=== PATIENT | male | born 1965 | race Caucasian/White ===

== ENCOUNTER 2018-03-19 19:04 | Emergency (ER) | payer SELFPAY ==
[2018-03-19 19:19] VITALS: BP 147/79
--- NOTE | 2018-03-19 20:26 | ED ---
Laceration/Wound HPI - HPI Summary HPI Summary: 52-year-old male presents with laceration to his chest. He states that he was a maul and a piece of it broke off and struck him in the chest. He is unsure if there is a foreign body in the wound. He states the area bled a lot but is not currently bleeding. He denies any chest pain currently. He believes his immunizations are up-to-date. - History of Current Complaint Stated Complaint: CHEST LAC Time Seen by Provider: 03/19/18 20:15 Pain Intensity: 0 - Allergy/Home Medications Allergies/Adverse Reactions: Allergies Allergy/AdvReac Type Severity Reaction Status Date / Time Adhesive Tape Allergy Intermediate Itching Verified 03/19/18 19:19 Home Medications: Home Medications NK [No Home Medications Reported] 03/19/18 [History Confirmed 03/19/18] PMH/Surg Hx/FS Hx/Imm Hx Endocrine/Hematology History: Denies: Hx Anticoagulant Therapy Cardiovascular History: Denies: Hx Myocardial Infarction Infectious Disease History: No Infectious Disease History: Denies: Traveled Outside the [place] in Last 30 Days - Family History Known Family History: Positive: Hypertension - Social History Substance Use Type: Reports: None Review of Systems Negative: Fever Negative: Chest Pain Negative: Shortness Of Breath Positive: Other - chest wall laceration All Other Systems Reviewed And Are Negative: Yes Physical Exam Triage Information Reviewed: Yes Vital Signs On Initial Exam: Initial Vitals Temp Pulse Resp BP Pulse Ox 98.0 F 76 18 147/79 98 03/19/18 19:15 03/19/18 19:15 03/19/18 19:15 03/19/18 19:15 03/19/18 19:15 Vital Signs Reviewed: Yes Appearance: Positive: Well-Appearing Skin: Positive: Other - 1/2cm superficial laceration with no foreign body on center sternum Head/Face: Positive: Normal Head/Face Inspection Eyes: Positive: Normal, Conjunctiva Clear Respiratory/Lung Sounds: Positive: Clear to Auscultation, Breath Sounds Present Cardiovascular: Positive: Normal, RRR Musculoskeletal: Positive: Normal Neurological: Positive: Normal Psychiatric: Positive: Normal Procedures - Laceration/Wound Repair 1 Location: Other - chest wall Description: Linear Length, Depth and Shape: 1/2cm superficial Irrigated w/ Saline (ccs): 50 Laceration/Wound Explored: no foreign body removed Closure: Skin Adhesive Diagnostics - Vital Signs Vital Signs Temp Pulse Resp BP Pulse Ox 03/19/18 19:15 98.0 F 76 18 147/79 98 - Laboratory Lab Statement: Any lab studies that have been ordered have been reviewed, and results considered in the medical decision making process. Laceration Repair Course/Dx - Course Course Of Treatment: 52-year-old male presents with laceration to his chest. He states that he was a maul and a piece of it broke off and struck him in the chest. He is unsure if there is a foreign body in the wound. He states the area bled a lot but is not currently bleeding. He denies any chest pain currently. He believes his immunizations are up-to-date. On exam has a half centimeter superficial laceration to the chest wall over the sternum. explored Wound and no foreign body found. also tried with magnet and no foreign body found. Cleaned the area and glued. Patient understands agrees with plan. - Differential Dx Differental Diagnoses: Abrasion, Avulsion, Laceration - Clinical Impression Provider Diagnoses: Laceration of chest wall Discharge - Sign-Out/Discharge Documenting (check all that apply): Discharge/Admit/Transfer - Discharge Plan Condition: Good Disposition: HOME Patient Education Materials: Skin Adhesive Care (ED) Referrals: [facility] [place] [facility] [Outside] Additional Instructions: Place ice on area Take Tylenol for pain as needed every 6 hours Keep dry for 24 hours Glue will fall off on own Avoid scrubbing area Return to ED if develop any signs of infection or any new or worsening symptoms - Billing Disposition and Condition Condition: GOOD Disposition: HOME
== END 2018-03-19 20:47 | disposition home or self-care (01) ==
LOC: ED 19:04
DX: S21.119A Laceration without foreign body of unspecified front wall of thorax without penetration into thoracic cavity, initial encounter (principal); W22.8XXA Striking against or struck by other objects, initial encounter; Y93.9 Activity, unspecified; Y92.9 Unspecified place or not applicable
CPT/HCPCS: 12001; 99282

== ENCOUNTER 2018-06-03 15:40 | Emergency (ER) | payer OTHER ==
[2018-06-03 16:09] VITALS: BP 183/92
--- NOTE | 2018-06-03 16:22 | UC ---
Bite Injury/Animal HPI - HPI Summary HPI Summary: This is [facility] documenting for presenting Jimbo Pascal MD. Pt is a 52 y/o M c/o finger pain and infection presenting s/p spider bite, ~1 week ago, which he believes to have been a Brown Recluse spider. Pain is rated a 7/10 and is worsened by palpation, moving finger. Assoc. Sx: Redness, swelling , drainage - white (puss). He reports treating with antibiotic ointment. - History of Current Complaint Chief Complaint: UCSkin Stated Complaint: BUG BITE ON FINGER Time Seen by Provider: 06/03/18 16:16 Hx Obtained From: Patient Severity Initially: Severe Pain Intensity: 7 Pain Scale Used: 0-10 Numeric Onset/Duration: Sudden Onset Type of Bite: Wild Animal - spider Has Animal Been Immunized?: No Character: Puncture Aggravating Factor(s): Other - palpation, moving it. Alleviating Factor(s): Nothing Associated Signs And Symptoms: Positive: Erythema, Drainage - white puss, Swelling - Allergies/Home Medications Allergies/Adverse Reactions: Allergies Allergy/AdvReac Type Severity Reaction Status Date / Time Adhesive Tape Allergy Intermediate Itching Verified 06/03/18 16:09 Home Medications: Home Medications Buprenorphine HCl/Naloxone HCl [Suboxone 4 mg-1 mg Sl Film] 1 mis SL DAILY WITH MEAL 06/03/18 [History Confirmed 06/03/18] Gabapentin 600 mg PO DAILY WITH MEAL 06/03/18 [History Confirmed 06/03/18] PARoxetine HCl [Paxil] 10 mg PO DAILY WITH MEAL 06/03/18 [History Confirmed 01/16] PMH/Surg Hx/FS Hx/Imm Hx Psychological History: Depression Other History Of: Negative For: Anticoagulant Therapy - Surgical History Surgical History: Yes Surgery Procedure, Year, and Place: 1999 - Family History Known Family History: Positive: Hypertension Negative: Cardiac Disease, Diabetes - Social History Occupation: Employed Full-time Lives: With Family Alcohol Use: Rare Substance Use Type: None Substance Use Comment - Amount & Last Used: hx opiate abuse Smoking Status (MU): Heavy Every Day Tobacco Smoker Length of Time of Smoking/Using Tobacco: 12 Household Exposure Type: Cigarettes Review of Systems Constitutional: Fever Musculoskeletal: Other: - POS: R 4th finger swelling, redness, drainage - white (puss). All Other Systems Reviewed And Are Negative: Yes Physical Exam - Summary Physical Exam Summary: VITAL SIGNS: Reviewed. GENERAL: Patient is a well-developed and nourished Male who is lying comfortable in the stretcher. Patient is not in any acute respiratory distress. HEAD AND FACE: Normocephalic EYES: PERRLA, EOMI x 2. EARS: Hearing grossly intact. MOUTH: Oropharynx within normal limits. NECK: Supple, trachea is midline, no adenopathy, no JVD, no carotid bruit. CHEST: Symmetric, no tenderness at palpation LUNGS: Clear to auscultation bilaterally. No wheezing or crackles. CVS: Regular rate and rhythm, S1 and S2 present, no murmurs or gallops appreciated. ABDOMEN: Soft, non-tender. Bowel sounds are normal. No abdominal abnormal pulsations. EXTREMITIES: R 4th finger cellulitis and absess; TTP. NEURO: Alert and oriented x 3. No acute neurological deficits. Speech is normal and follows commands. SKIN: Dry and warm Triage Information Reviewed: Yes Vital Signs: Initial Vital Signs Temp 100 F 06/03/18 16:03 Pulse 108 06/03/18 16:03 Resp 20 06/03/18 16:03 BP 183/92 06/03/18 16:03 Pulse Ox 100 06/03/18 16:03 Vital Signs Reviewed: Yes Procedures - Incision and Drainage Right Upper Midline Finger Site: 4th finger Anesthesia: Lidocaine Instrument(s): Scalpel Packing: Gauze, Drain - puss Bite Injury Course/Dx - Course Course Of Treatment: 52-year-old male with an abscess and cellulitis in the right fourth finger. Incision and drainage performed. Copious amount of purulent discharge obtained. Wound culture sent. Patient given Toradol for the pain. Patient was discharged with Bactrim. Patient will follow-up within 2 -3 days with the primary care physician or return to the urgent care for wound reassessment. At this point the patient is able to flex and extend all digits therefore have no suspicion for tenosynovitis. However the patient was given instructions that if the patient's pain increases has fever and chills she she' ll return to the urgent care or go to the emergency department for further workup and management. The patient understands and agrees. Patient is hemodynamically stable. - Differential Dx/Diagnosis Differential Diagnosis/HQI/PQRI: Cellulitis, Laceration, Puncture, Superficial Infection, Deep Space Infection, Tenosynovitis Provider Diagnoses: R 4th finger cellulitis and absess. Discharge - Sign-Out/Discharge Documenting (check all that apply): Patient Departure - Discharge Plan Condition: Stable Disposition: HOME Prescriptions: Sulfamethox/Trimethoprim DS* [Bactrim DS 800/160 TAB*] 1 tab PO BID #20 tab Patient Education Materials: Cellulitis (ED), Insect Bite or Sting (ED), Abscess (ED) Referrals: [facility] [place] [facility] [Outside] - 3 Days Additional Instructions: RETURN TO URGENT CARE FOR ANY WORSENING OR NEW SYMPTOMS. - Billing Disposition and Condition Condition: STABLE Disposition: Home
[2018-06-03] MEDS ORDERED: Lidocaine 1%* 5 ML VIAL ONE (16:23)
[2018-06-03] MEDS ORDERED: Lidocaine 1% MPF* 2 ML VIAL INJ ONE (16:42)
[2018-06-03] MEDS ORDERED: Ketorolac INJ* 60 MG/2 ML VIAL IM ONE (16:43)
[2018-06-03] MEDS ORDERED: Ibuprofen TAB* 400 MG PO ONE (16:54)
--- NOTE | 2018-06-06 14:36 | CONS ---
CONSULTATION REPORT: DATE OF CONSULT: 06/06/18. REQUESTING PHYSICIAN: Dr. Morales. CONSULTING SERVICE: Infectious Disease. REASON FOR CONSULT: Right ring finger infection. IMPRESSION: 1. Abscess of the right fourth finger status post incision and debridement by Dr. Caruso. Culture fr om 06/03/18, had grown methicillin-resistant Staphylococcus aureus. He does not acquire preceding in jury. He had an x-ray that does not show any foreign body or fracture. His range of motion is impro ving. 2. Septic joint or tenosynovitis less likely. 3. Obesity. 4. Tobacco use. RECOMMENDATIONS: Continue vancomycin for another 24 hours. We will reevaluate tomorrow as long as h e is having continued improvement, can change the doxycycline 100 mg by mouth twice a day for 14 more days. HISTORY OF PRESENT ILLNESS: This is a 52-year-old man with a right fourth finger infection that came on about 5 or 6 days ago with redness, pain, and swelling without any preceding injury. He thought he must have a spider bite. Because of the swelling, he came to the hospital on 06/03/18, with white count of 10,000. He is afebrile and started on vancomycin, had an I and D done by Dr. Caruso. Since then, he has had improvement in the redness that was tracking up his right arm, it has essentially r esolved. He had had improvement in range of motion of the fourth finger as well as the swelling in t he finger and his hand. He cannot quite extend it out completely. The pain has much improved. He h as not had infections like this in the past that required hospitalization. PAST MEDICAL HISTORY: 1. Tobacco abuse. 2. Opioid abuse. 3. Obesity. 4. Negative hepatitis C and HIV testing, 03/01/18. MEDICATIONS: 1. Tylenol. 2. Suboxone. 3. Clozapine. 4. Gabapentin. 5. Nicotine patch. 6. Paroxetine. 7. Vancomycin 1250 mg every 8 hours. ALLERGIES: FAMILY HISTORY: Mother from diabetes. Father in 70s of [place]. SOCIAL HISTORY: He lives in [place] with family. He is a smoker. He notes history of using in the opioids in the past, but not injection. REVIEW OF SYSTEMS: All negative to a 14-point review except as noted above in the history of present illness. PHYSICAL EXAM: Vital Signs: Temperature 36, heart rate is 70, respiratory rate 18, blood pressure 1 17/61, oxygen saturation 97% on room air. General: He is awake and not in distress. Neurologic: H e is oriented x3. Follows all commands. HEENT: There is no thrush. Neck: Supple without mass. He art: Regular rate and rhythm without murmurs, rubs, or gallops. Lungs: Clear to auscultation bilat erally. Abdomen: Soft, nontender, and nondistended. There is bowel sounds present. Skin: There i s no rashes or splinter hemorrhages. Musculoskeletal: There is mild right forearm edema without crep itus, fluctuance, erythema, or warmth. Fourth finger incision is intact. There is some slight serou s drainage, decreased range of motion and extension. DIAGNOSTIC STUDIES/LAB DATA: White blood cell count 6, hemoglobin 11, and platelets 128. Creatinine 0.8. CRP was 41. Please see impressions and recommendations outlined above, which I have discussed with Dr. Morales. Thanks for asking me to see Vahe Kate in consultation. [id number]/[facility] #: [id number]
== END 2018-06-03 17:00 | disposition home or self-care (01) ==
LOC: UCEAST 15:40
DX: L03.011 Cellulitis of right finger (principal); L02.511 Cutaneous abscess of right hand; Z91.048 Other nonmedicinal substance allergy status; F32.9 Major depressive disorder, single episode, unspecified; F17.210 Nicotine dependence, cigarettes, uncomplicated
CPT/HCPCS: 10060; 87070; 87077; 87186; 87205; 87640; 87641; 99212; A9270-GY; G0463; J1885

== ENCOUNTER 2018-06-03 19:31 | Inpatient (IN) | payer OTHER ==
--- NOTE | 2018-06-03 20:37 | ED ---
Skin Complaint - HPI Summary HPI Summary: This is [facility] documenting for attending Leon Vigil MD. This patient is a 52 year old M presenting to [facility] accompanied by two women and a small child with a chief complaint of worsening right fourth finger abscess since this morning. Pt went to earlier today where it was drained, but the erythema has spread down into his forearm. Patient reports right hand tightness, hand pain, and edema. Pt reports that he may have been bitten by a spider. - History of Current Complaint Chief Complaint: EDRashSkinAbscess Time Seen by Provider: 06/03/18 20:25 Stated Complaint: SPIDER BITE Hx Obtained From: Patient Onset/Duration: Started Hours Ago Timing: Constant Onset Severity: Mild Current Severity: Mild Pain Intensity: 0 Pain Scale Used: 0-10 Numeric Character: Swelling, Redness - Allergy/Home Medications Allergies/Adverse Reactions: Allergies Allergy/AdvReac Type Severity Reaction Status Date / Time Adhesive Tape Allergy Intermediate Itching Verified 06/03/18 19:38 PMH/Surg Hx/FS Hx/Imm Hx Endocrine/Hematology History: Denies: Hx Anticoagulant Therapy, Hx Diabetes, Hx Thyroid Disease Cardiovascular History: Denies: Hx Hypertension, Hx Myocardial Infarction Respiratory History: Denies: Hx Asthma, Hx Chronic Obstructive Pulmonary Disease (COPD) GI History: Denies: Hx Ulcer - Surgical History Surgery Procedure, Year, and Place: 1999 Infectious Disease History: No Infectious Disease History: Denies: Hx Hepatitis, Hx Human Immunodeficiency Virus (HIV), Traveled Outside the [place] in Last 30 Days - Family History Known Family History: Positive: Hypertension Negative: Cardiac Disease, Diabetes - Social History Alcohol Use: Rare Substance Use Type: Reports: None Substance Use Comment - Amount & Last Used: hx opiate abuse Smoking Status (MU): Heavy Every Day Tobacco Smoker Length of Time of Smoking/Using Tobacco: 12 Review of Systems Negative: Vomiting Positive: Edema - hand, Other - right hand pain, tightness All Other Systems Reviewed And Are Negative: Yes Physical Exam - Summary Physical Exam Summary: Appearance: Well-appearing, Well-nourished, lying in bed comfortable Skin: Warm, dry. Abscess on the dorsum of the first phalanx of the right fourth finger with associated swelling. Swelling into the dorsum of the hand. Swelling on the radial side of the wrist. Eyes: sclera anicteric, no conjunctival pallor ENT: mucous membranes moist Neck: deferred Respiratory: No signs of respiratory distress Cardiovascular: Appears well perfused, pulses are nml Abdomen: deferred Musculoskeletal: Moving all 4 extremities without obvious discomfort Neurological: Awake and alert, mentation is normal, speech is fluent and appropriate Psychiatric: affect is normal, does not appear anxious or depressed Triage Information Reviewed: Yes Vital Signs On Initial Exam: Initial Vitals Temp Pulse Resp BP Pulse Ox 99.4 F 112 16 176/90 96 06/03/18 19:33 06/03/18 19:33 06/03/18 19:33 06/03/18 19:33 06/03/18 19:33 Vital Signs Reviewed: Yes Diagnostics - Vital Signs Vital Signs Temp Pulse Resp BP Pulse Ox 06/03/18 19:33 99.4 F 112 16 176/90 96 - Laboratory Result Diagrams: 06/06/18 08:11 06/06/18 08:11 Lab Statement: Any lab studies that have been ordered have been reviewed, and results considered in the medical decision making process. - Radiology Hand X Ray Radiology Interpretation Completed By: Radiologist - Normal radiograph of the right hand and wrist. If the patient's symptoms persist, follow-up imaging is recommended. ED Physician has reviewed this report. Wrist X Ray Radiology Interpretation Completed By: Radiologist - Normal radiograph of the right hand and wrist. If the patient's symptoms persist, follow-up imaging is recommended. ED Physician has reviewed this report Course/Dx - Diagnoses Provider Diagnoses: Abscess of hand, MRSA (methicillin resistant Staphylococcus aureus) infection - Physician Notifications Discussed Care Of Patient With: Maria Del Rosario Caruso Instructed by Provider To: MD Will See In ED - Dr. Caruso recommends admission to the hospital under hospitalist service for IV antibiotics. She will see the patient in the morning to decide on surgery. Discharge - Sign-Out/Discharge Documenting (check all that apply): Patient Departure - Discharge Plan Condition: Improved Disposition: ADMITTED TO [facility] - Billing Disposition and Condition Condition: IMPROVED Disposition: Admitted to [facility]
[2018-06-03] MEDS ORDERED: Vancomycin(*) 1,500 MG in NS 0.9% 250 ML* 250 ML IVPB ONE (20:52)
--- NOTE | 2018-06-03 20:53 | RAD ---
INDICATION: Hand and wrist pain after being "bit by spider". Requisition notes the bite is on the "knuckle" of the fourth digit of the right hand. COMPARISON: None. TECHNIQUE: 4 views of the right hand and 3 views of the right breast were obtained. FINDINGS: The visualized soft tissues appear normal within the limitations of plain film radiography. The adequately corticated bones are in normal alignment. No significant focal osseous abnormality or fracture is seen. Joint spaces appear maintained. IMPRESSION: Normal radiograph of the right hand and wrist. If the patient's symptoms persist, follow-up imaging is recommended.
[2018-06-03 20:57] LABS: ABS Basophils 0 10^3/ul (0-0.2); ABS Eosinophils 0.1 10^3/ul (0-0.6); ABS Lymphocytes 1.1 10^3/ul (1.0-4.8); ABS Monocytes 0.8 10^3/ul (0-0.8); ABS Neutrophils 8.1 10^3/ul (1.5-7.7); ABS Nucleated RBC 0 10^3/ul; Eosinophil % 1.3 % (0-6); Hematocrit 37 % (42-52); Hemoglobin 12.6 g/dl (14.0-18.0); Lymphocyte % 10.8 % (25-47); Mean Corpuscular HGB Conc 34 g/dl (31-36); Mean Corpuscular Hemoglobin 32 pg (27-31); Mean Corpuscular Volume 94 fL (80-94); Mean Platelet Volume 7.8 um3 (7.4-10.4); Nucleated Red Blood Cells % 0; Platelet Count 164 10^3/ul (150-450); Red Blood Count 3.94 10^6/ul (4.00-5.40); Red Cell Distribution Width 13 % (10.5-15); White Blood Count 10.2 10^3/ul (3.5-10.8)
[2018-06-03] MEDS ORDERED: NS 0.9% 250 ML* 250 ML ONE (21:01)
[2018-06-03 21:07] LABS: EGFR Non-African American 90.9 (>60)
[2018-06-03] MEDS ORDERED: Potassium Chlor TAB* 20 MEQ TAB.ER PO ONE (21:58)
[2018-06-03] MEDS ORDERED: Vancomycin per Pharmacy* NOTE FOLLOW UP SCH (22:00)
[2018-06-03] MEDS ORDERED: Vancomycin(*) 1,500 MG in NS 0.9% 250 ML* 250 ML IVPB SCH (22:00)
[2018-06-03] MEDS ORDERED: Ketorolac INJ* 30 MG/ML 1 ML VIAL IV PUSH ONE (22:00)
[2018-06-03] MEDS ORDERED: Bupivacaine 0.5% W/EPI SDV* 30 ML VIAL ONE (22:07)
[2018-06-03 22:15] LABS: INR 1.06 (0.77-1.02)
[2018-06-03] MEDS ORDERED: Mouth Piece, Nicotine* 1 EACH CARTRIDGE INH PRN (22:28)
[2018-06-03] MEDS ORDERED: hydrALAZINE IV* 20 MG/ML VIAL IV SLOW PU PRN (22:30)
[2018-06-03] MEDS ORDERED: Mupirocin 2% CREAM* 15 GM TOPICAL SCH (22:30)
[2018-06-03] MEDS: Acetaminophen TAB* 325 MG PO PRN (23:31)
[2018-06-03] MEDS: Nicotine Inhaler* 10 MG AMP INH PRN (23:31)
--- NOTE | 2018-06-03 23:43 | CONS ---
CC: Maria Del Rosario Caruso MD CONSULTATION REPORT: DATE OF CONSULT: 06/03/18 CHIEF COMPLAINT: Right hand pain and swelling. 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 Wednesday 6 days ago, he started noticing some swelling, pain, and redness on the dorsal aspect of his right ring finger. It has gradually gotten worse over time and today, he was seen at the [facility], he had the area of erythema incised and then was placed on an oral antibiotic. He returned to the emergency department tonight because he had increased swelling that was going up to the mid a spect of his forearm. PHYSICAL EXAM: On physical exam, he is a otherwise healthy-appearing male in mild distress at rest. On exam of his right hand, he has a large lesion on the dorsal aspect of his ring finger overlying t he proximal phalanx. There is marked swelling of the hand and the wrist area but no erythema extendi ng beyond the ring finger. IMPRESSION: Abscess on the right ring finger dorsal aspect. PLAN: The patient was given a digital block with 5 cc of 1% plain lidocaine. The abscess was incise d longitudinally and there was a significant amount of purulent material. This had previously been c ultured and had already come back as known to be MRSA. The wound was copiously irrigated with a lite r of saline and then packed with packing gauze and dressed with 4 x 4's, Kerlix, and Shankar wrap. The hilda hayward was admitted to the hospital on IV vancomycin by the hospitalist service and then I will see h im again in followup tomorrow. If he has not had marked improvement, we will take him to the [facility] room for extensive I and D of the right ring finger and hand. [id number]/[facility] #: [id number]
--- NOTE | 2018-06-04 01:32 | HP ---
CC: Silvia Koo MD, [facility]; Dr. Caruso HISTORY AND PHYSICAL: DATE OF ADMISSION: 06/03/18 TIME OF EVALUATION: 09:20 p.m. PRIMARY CARE PROVIDER: The patient has no primary care provider. CONSULTING ORTHOPEDIST: Dr. Caruso. CHIEF COMPLAINT: "My hand is swollen." HISTORY OF PRESENT ILLNESS: Mr. Love is a 52-year-old male with a past medical history of tobacco abuse, opioid dependence that presented to the emergency room with complaints of worsening edema of his right hand. The patient states he was on his usual state of health about a week ago when he noted the small itchy "bump" on his right fourth finger. He initially thought it could be spider bite as he had worked wi wood before. The area had progressive worsening of redness with worsening right forefinger edema. The patient denies fever, chills, body aches, malaise, sweats, nausea, vomiting, diarrhea, or any o ther systemic complaints. Earlier today, he went to [facility] and was described to have 7/10 pain worsened by palpation a nd moving the finger associated with redness, swelling, and pussy drainage. An I and D was performed under local anesthesia with copious amount of purulent discharge obtained. He received Toradol and was discharged on Bactrim. At that point, the patient was able to flex and extend all digits and the refore there was no suspicion for tenosynovitis. He was given instructions to return to Urgent Care or emergency department if he had worsening of his condition. The patient states that the swelling th at was confined to his finger extended to his hand and is now extending to his forearm reason why he came to the emergency room for further evaluation. In the meantime, the culture done at [facility] was MRSA positive. The patient denies localized weakness, numbness, tingling sensation to his right hand. States that janiya martinez has difficulty moving his fingers now because of the significant edema. 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 The patient does not have a primary care provider and states that when he goes to [facility], his blood pr essure is usually normal. He denies any complaints of chest pain, shortness of breath, palpitations, orthopnea, or paroxysmal nocturnal dyspnea. PAST MEDICAL HISTORY: 1. Opioid abuse. 2. Tobacco abuse. 3. Obesity with a BMI of 37. PAST SURGICAL HISTORY: History of complicated cholecystectomy requiring multiple surgeries including transfer to [facility] and as per , the patient required a Kael-en-Y. The patient states sydney t is when his opioid issues started. FAMILY HISTORY: The patient's mother at the young age of diabetes. Father in his 70s of a heart attack. SOCIAL HISTORY: The patient states he has a history of opioid abuse. Initially, he took Percocet af ter his multiple complicated abdominal surgeries and he says that he never injected or snorted anythi ng. He will just buy Percocet on the streets. He is now at [facility] and has been doing well on Suboxon e for the past 4 months. He says that occasionally he has a beer, the last one was a week ago. Occas ionally, he smokes marijuana, but denies any other drug use. He has been a smoker, quit for 20 years , but has resumed for the past 10 years after 2 packs a day. Surrogate decision maker is his , Millie Love, phone number is [phone]. REVIEW OF SYSTEMS: A 14-point review of systems was performed and all the pertinent negative and pos itive findings are in the HPI. PHYSICAL EXAMINATION GENERAL: The patient is a pleasant gentleman, sitting up in the ED stretcher, in no acute distress. VITAL SIGNS: Temperature 99.4, heart rate is 112, respiratory rate is 16, oxygen saturation is 96% o n room air, blood pressure is 176/90. HEENT: Pupils are equal. Moist mucous membranes. CHEST: Breath sounds present bilaterally with no added sounds. CVS: Normal S1, S2. Regular rate and rhythm. ABDOMEN: Soft, nontender. Bowel sounds are present. The patient has a large surgical scar extendin g from right on the ribs area all the way down to the left. EXTREMITIES: There is no lower extremity edema. His right hand shows a 2 cm round open area on the proximal aspect of his fourth finger with purulent drainage. There is significant edema of the fourth finger radiating to his hand and all the way up to fci his forearm. The patient has good pulses , good capillary refill. Sensation is intact and he is able to extend and flex his fingers, but the f lexion is limited by edema. GENITALS: The patient has an area of pustular rash on his right scrotum extending to the right ingui nal area. NEURO: He is alert and oriented x3. Able to move all 4 extremities. DIAGNOSTIC STUDIES/LAB DATA: The patient had a CBC that showed WBC of 10.2, hemoglobin of 12.6, hem atocrit of 37, platelets of 164 with 79% neutrophils. Chemistry showed sodium 140, potassium 3.3, chl oride of 108, bicarb 23, BUN of 14, creatinine of 0.8, glucose of 99, calcium 8.8, and troponin of 0. Culture done this morning at [facility]. PCR was positive for MRSA. Hand x-ray was normal radiograph of the right hand and wrist. EKG done on 06/03/18 showed sinus rhythm at 91 beats per minute with left anterior fascicular block a nd minimal ST elevation on II, III, and aVF. There is no prior EKG to compare. ASSESSMENT AND PLAN: Mr. Love is a 52-year-old with a past medical history of tobacco abuse, opio id abuse, obesity with a BMI of 37, who presents to the emergency room with worsening of right hand e villa, erythema found to have an MRSA cellulitis/abscess. 1. Right hand MRSA cellulitis/abscess. The patient was already started on vancomycin and we are goi ng to continue IV antibiotics. He is being evaluated in the emergency room by Dr. Caruso and the plan is for I and D at bedside with local anesthesia at this time. She will reevaluate in the morning an d then decided if he needs to go to the OR for further debridement. Considering the patient's histor y of opioid abuse, we will try to manage his pain with acetaminophen and ketorolac and we will contin ue his Suboxone for now, but if the pain becomes severe, we may have to consider giving him opioid fo r pain control, but we will try to avoid it for now. 2. Opioid abuse. We will continue his Suboxone as above. 3. Tobacco abuse. We will start on nicotine patch and inhaler to help with cravings. 4. EKG changes. The patient has no complaints of chest pain or shortness of breath. His EKG does s how some ST elevations in II, III, and aVF, but his troponin is negative. I believe this ST elevatio n is likely associated with the left anterior fascicular block and probable LVH. At this point, I be lieve no further workup is needed as inpatient, but the patient is a smoker and at risk for coronary artery disease, so I believe the safest way would be for the patient to have a primary care provider, so he can have further evaluations as outpatient. Of course if he becomes symptomatic, we will repe at EKG, serial troponins, and get Cardiology involved. 5. Hypertension. The patient denies having a diagnosis of hypertension. His states that when he goes to be checked at [facility], his blood pressure is "always normal." This blood pressure elevation at this point can be secondary to pain, so for now we are going to monitor it and he will have hydra lazine ordered for a systolic blood pressure greater than 180. 6. Hypokalemia, we will replete. 7. Right genital rash. The rash is pustular in nature, suspicious for folliculitis. The patient is already on vancomycin and we are going to treat with topical mupirocin. 8. DVT prophylaxis. The patient has a score of 2 on the DVT Prophylaxis Risk Assessment Guide and h e will be started on SCDs until his surgical procedures had done. 9. Code status is full. TIME SPENT: Approximately 50 minutes were spent with patient and interview, medical records rev iew, physical examination to complete the admission. [id number]/[facility] #: [id number]
[2018-06-04 05:52] LABS: ABS Basophils 0 10^3/ul (0-0.2); ABS Eosinophils 0.1 10^3/ul (0-0.6); ABS Lymphocytes 0.9 10^3/ul (1.0-4.8); ABS Monocytes 0.7 10^3/ul (0-0.8); ABS Neutrophils 8.5 10^3/ul (1.5-7.7); ABS Nucleated RBC 0 10^3/ul; Eosinophil % 1.4 % (0-6); Hematocrit 43 % (42-52); Hemoglobin 14.9 g/dl (14.0-18.0); Lymphocyte % 8.5 % (25-47); Mean Corpuscular HGB Conc 34 g/dl (31-36); Mean Corpuscular Hemoglobin 32 pg (27-31); Mean Corpuscular Volume 93 fL (80-94); Mean Platelet Volume 7.7 um3 (7.4-10.4); Nucleated Red Blood Cells % 0.1; Platelet Count 169 10^3/ul (150-450); Red Blood Count 4.67 10^6/ul (4.00-5.40); Red Cell Distribution Width 13 % (10.5-15); White Blood Count 10.1 10^3/ul (3.5-10.8)
[2018-06-04] MEDS: Vancomycin(*) 1,250 MG IV Q8H IVPB SCH ×6 (05:53→21:39)
[2018-06-04] MEDS: Ketorolac INJ* 30 MG/ML 1 ML VIAL IV PUSH PRN ×3 (06:01→18:33)
[2018-06-04 06:12] LABS: EGFR Non-African American 72.6 (>60)
[2018-06-04] MEDS: Nicotine PATCH 21 MG/24 HR* PATCH TRANSDERM SCH ×2 (07:51→09:57)
[2018-06-04] MEDS: Nicotine Inhaler* 10 MG AMP INH PRN (08:11)
[2018-06-04] MEDS: Mupirocin 2% OINT* TUBE TOPICAL SCH ×3 (08:45→21:47)
[2018-06-04] MEDS: PARoxetine HCL TAB* 10 MG PO SCH (08:46)
[2018-06-04] MEDS: Buprenorphine/Naloxone 8-2 MG SL TAB* 1 TAB SL SCH (08:46)
[2018-06-04] MEDS: Gabapentin CAP(*) 300 MG PO SCH (08:46)
[2018-06-04] MEDS: Acetaminophen TAB* 325 MG PO PRN (08:51)
[2018-06-04] MEDS: clonazePAM TAB(*) 0.5 MG PO PRN ×2 (10:13→21:39)
--- NOTE | 2018-06-04 11:12 | HP ---
CC: Dr. Silvia Koo, [facility]; Dr. Caruso HISTORY AND PHYSICAL: ADDENDUM: CONSULTING ORTHOPEDIST: Dr. Caruso. I discussed the patient's Suboxone use with Dr. Koo and the recommendation is to continue Suboxone and try to control his pain with acetaminophen and nonsteroidals. If the pain becomes more severe and he requires opioids, the newest recommendation is to continue Suboxone and the patient may require higher doses of opioids. For now, we are going to continue the current management and wait for orthopedist reevaluation to see if the patient will need further surgical intervention. [id number]/[facility] #: [id number] MTDD
[2018-06-04] MEDS: Nicotine Patch Removal NOTE FOLLOW UP SCH ×2 (11:49→21:48)
--- NOTE | 2018-06-04 18:01 | RAD ---
Indication: Right upper extremity edema. Duplex Doppler sonography of the deep venous system of the right upper extremity was performed. Bilaterally the internal jugular veins appear patent. Normal phasic flow is noted. Bilaterally the subclavian veins demonstrates normal phasic flow. Patent. The right axillary vein, brachial vein, basilic vein, cephalic vein, radial vein and ulnar veins are patent and compressible. 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 IMPRESSION: No evidence of the venous thrombosis right upper extremity is present.
[2018-06-05] MEDS ORDERED: Vancomycin Trough Check NOTE FOLLOW UP ONE (05:30)
[2018-06-05] MEDS: Vancomycin(*) 1,250 MG IV Q8H IVPB SCH ×6 (06:33→22:12)
[2018-06-05] MEDS: Buprenorphine/Naloxone 8-2 MG SL TAB* 1 TAB SL SCH (07:33)
[2018-06-05] MEDS: Ketorolac INJ* 30 MG/ML 1 ML VIAL IV PUSH PRN ×3 (07:33→22:06)
[2018-06-05] MEDS: Nicotine PATCH 21 MG/24 HR* PATCH TRANSDERM SCH (07:40)
[2018-06-05] MEDS: clonazePAM TAB(*) 0.5 MG PO PRN ×2 (09:30→20:22)
[2018-06-05] MEDS: Gabapentin CAP(*) 300 MG PO SCH (09:30)
[2018-06-05] MEDS: PARoxetine HCL TAB* 10 MG PO SCH (09:30)
[2018-06-05] MEDS: Mupirocin 2% OINT* TUBE TOPICAL SCH ×3 (09:31→21:20)
--- NOTE | 2018-06-05 17:51 | PN ---
Subjective Date of Service: 06/05/18 Interval History: . R hand improved wrt swelling and erythema and pain IV Vanco continues Orthopedist does not intend to further debride at this time. Family interested in outpatient ABX options and I told them sensitivities are back and doxycycline and bactrim are both options. BCX NGTD. Appetite better patient ambulating struggling with no-smoking policy... Family History: Unchanged from Admission Social History: Unchanged from Admission Past Medical History: Unchanged from Admission Objective Active Medications: . Acetaminophen (Tylenol Tab*) 650 mg PO Q6H PRN PRN Reason: pain/fever Last Admin: 06/04/18 08:51 Dose: 650 mg Buprenorphine/Naloxone (Suboxone 8-2 Mg Sl Tab*) 0.5 tab.sl SL DAILY WITH MEAL [facility] Last Admin: 06/05/18 07:33 Dose: 0.5 tab.sl Clonazepam (Klonopin Tab(*)) 0.5 mg PO BID PRN PRN Reason: ANXIETY Last Admin: 06/05/18 09:30 Dose: 0.5 mg Device (Nicotine Mouth Piece*) 1 each INH .USE WITH NICOTROL PRN PRN Reason: CRAVING Last Admin: 06/03/18 23:31 Dose: 1 each Gabapentin (Neurontin Cap(*)) 600 mg PO DAILY WITH MEAL [facility] Last Admin: 06/05/18 09:30 Dose: 600 mg Hydralazine HCl (Apresoline Iv*) 5 mg IV SLOW PU Q6H PRN PRN Reason: SBP>180 Vancomycin HCl 1,250 mg/ (Sodium Chloride) 250 mls @ 166.667 mls/hr IVPB Q8H [facility] Last Admin: 06/05/18 14:00 Dose: 166.667 mls/hr Ketorolac Tromethamine (Toradol Inj*) 30 mg IV PUSH Q6H PRN PRN Reason: PAIN Last Admin: 06/05/18 15:57 Dose: 30 mg Mupirocin (Bactroban 2 % Oint*) 1 applic TOPICAL TID [facility] Last Admin: 06/05/18 14:08 Dose: Not Given Nicotine (Nicotine Inhaler*) 10 mg INH Q2H PRN PRN Reason: CRAVING Last Admin: 06/04/18 08:11 Dose: 10 mg Nicotine (Nicotine Patch 21 Mg/24 Hr*) 1 patch TRANSDERM DAILY@0800 [facility] Last Admin: 06/05/18 07:40 Dose: Not Given Paroxetine HCl (Paxil Tab*) 10 mg PO DAILY WITH MEAL [facility] Last Admin: 06/05/18 09:30 Dose: 10 mg Pharmacy Consult (Vancomycin Per Pharmacy*) 1 note FOLLOW UP .VANC PER PHARMACY [facility] Pharmacy Profile Note (Nicotine Patch Removal Note*) 1 note FOLLOW UP 2100 [facility] Last Admin: 06/04/18 21:48 Dose: Not Given . Vital Signs - 8 hr 06/05/18 06/05/18 06/05/18 11:15 11:37 17:11 Temperature 98.3 F 99.7 F Pulse Rate 82 88 Respiratory 14 16 18 Rate Blood Pressure 132/65 152/61 (mmHg) O2 Sat by Pulse 97 100 Oximetry Oxygen Devices in Use Now: None Appearance: NAD Eyes: No Scleral Icterus Ears/Nose/Mouth/Throat: NL Teeth, Lips, Gums Neck: NL Appearance and Movements; NL JVP Respiratory: Symmetrical Chest Expansion and Respiratory Effort Cardiovascular: NL Sounds; No Murmurs; No JVD Abdominal: NL Sounds; No Tenderness; No Distention Lymphatic: No Cervical Adenopathy Extremities: No Edema, - - R hand wrapped with decreased erythema and pain in proximal arm compared with yesterday Skin: No Rash or Ulcers Neurological: Alert and Oriented x 3 Lines/Tubes/Other Access: Clean, Dry and Intact Peripheral IV Nutrition: Taking PO's Result Diagrams: 06/04/18 05:32 06/04/18 05:32 Diagnostic Imaging: . Doppler R. Arm Negative for DVT. Assess/Plan/Problems-Billing . Assessment: 52 yo man with MRSA infection of R hand, s/p I&D by orthopedics 06/03/18, IV vanco ongoing, and overall situation slowly improving. - Patient Problems (1) MRSA (methicillin resistant Staphylococcus aureus) infection Current Visit: Yes Status: Acute Priority: High Code(s): A49.02 - METHICILLIN RESIS STAPH INFECTION, UNSP SITE (2) Abscess of right hand Current Visit: Yes Status: Acute Priority: High Code(s): L02.511 - CUTANEOUS ABSCESS OF RIGHT HAND
--- NOTE | 2018-06-05 17:56 | PN ---
Subjective Date of Service: 06/04/18 Interval History: . patient very frustrated pain/swelling in R arm is not decreased. U/S ordered to R/O Upper extremity DVT. IV vanco ongoing s/p bedside debridement by Dr. Caruso last PM (06/03 at ~ [place]) denies fevers, able to eat, walk. present and similarly upset. . Family History: Unchanged from Admission Social History: Unchanged from Admission Past Medical History: Unchanged from Admission Objective Active Medications: . Acetaminophen (Tylenol Tab*) 650 mg PO Q6H PRN PRN Reason: pain/fever Last Admin: 06/04/18 08:51 Dose: 650 mg Buprenorphine/Naloxone (Suboxone 8-2 Mg Sl Tab*) 0.5 tab.sl SL DAILY WITH MEAL [facility] Last Admin: 06/05/18 07:33 Dose: 0.5 tab.sl Clonazepam (Klonopin Tab(*)) 0.5 mg PO BID PRN PRN Reason: ANXIETY Last Admin: 06/05/18 09:30 Dose: 0.5 mg Device (Nicotine Mouth Piece*) 1 each INH .USE WITH NICOTROL PRN PRN Reason: CRAVING Last Admin: 06/03/18 23:31 Dose: 1 each Gabapentin (Neurontin Cap(*)) 600 mg PO DAILY WITH MEAL [facility] Last Admin: 06/05/18 09:30 Dose: 600 mg Hydralazine HCl (Apresoline Iv*) 5 mg IV SLOW PU Q6H PRN PRN Reason: SBP>180 Vancomycin HCl 1,250 mg/ (Sodium Chloride) 250 mls @ 166.667 mls/hr IVPB Q8H [facility] Last Admin: 06/05/18 14:00 Dose: 166.667 mls/hr Ketorolac Tromethamine (Toradol Inj*) 30 mg IV PUSH Q6H PRN PRN Reason: PAIN Last Admin: 06/05/18 15:57 Dose: 30 mg Mupirocin (Bactroban 2 % Oint*) 1 applic TOPICAL TID [facility] Last Admin: 06/05/18 14:08 Dose: Not Given Nicotine (Nicotine Inhaler*) 10 mg INH Q2H PRN PRN Reason: CRAVING Last Admin: 06/04/18 08:11 Dose: 10 mg Nicotine (Nicotine Patch 21 Mg/24 Hr*) 1 patch TRANSDERM DAILY@0800 [facility] Last Admin: 06/05/18 07:40 Dose: Not Given Paroxetine HCl (Paxil Tab*) 10 mg PO DAILY WITH MEAL [facility] Last Admin: 06/05/18 09:30 Dose: 10 mg Pharmacy Consult (Vancomycin Per Pharmacy*) 1 note FOLLOW UP .VANC PER PHARMACY [facility] Pharmacy Profile Note (Nicotine Patch Removal Note*) 1 note FOLLOW UP 2100 [facility] Last Admin: 06/04/18 21:48 Dose: Not Given . Vital Signs - 8 hr 06/05/18 06/05/18 06/05/18 11:15 11:37 17:11 Temperature 98.3 F 99.7 F Pulse Rate 82 88 Respiratory 14 16 18 Rate Blood Pressure 132/65 152/61 (mmHg) O2 Sat by Pulse 97 100 Oximetry Oxygen Devices in Use Now: None Appearance: NAD; R arm elevated on pillows; wrapped Eyes: No Scleral Icterus, PERRLA Ears/Nose/Mouth/Throat: Clear Oropharnyx, Mucous Membranes Moist Respiratory: Symmetrical Chest Expansion and Respiratory Effort Cardiovascular: NL Sounds; No Murmurs; No JVD Abdominal: NL Sounds; No Tenderness; No Distention Lymphatic: No Cervical Adenopathy Extremities: - - R hand wrapped and raised. + proximal edema and erythema to mid forearm. Skin: No Rash or Ulcers Neurological: Alert and Oriented x 3 Lines/Tubes/Other Access: Clean, Dry and Intact Peripheral IV Result Diagrams: 06/04/18 05:32 06/04/18 05:32 Diagnostic Imaging: . Doppler R. Arm Negative for DVT. Assess/Plan/Problems-Billing . Assessment: 52 yo man with MRSA infection of R hand, s/p I&D by orthopedics 06/03/18, IV vanco ongoing, and overall situation slowly improving. - Patient Problems (1) MRSA (methicillin resistant Staphylococcus aureus) infection Current Visit: Yes Status: Acute Priority: High Code(s): A49.02 - METHICILLIN RESIS STAPH INFECTION, UNSP SITE (2) Abscess of right hand Current Visit: Yes Status: Acute Priority: High Code(s): L02.511 - CUTANEOUS ABSCESS OF RIGHT HAND
[2018-06-05] MEDS: Acetaminophen TAB* 325 MG PO PRN (20:36)
[2018-06-05] MEDS: Nicotine Patch Removal NOTE FOLLOW UP SCH (21:19)
[2018-06-06] MEDS: Ketorolac INJ* 30 MG/ML 1 ML VIAL IV PUSH PRN ×3 (06:15→20:44)
[2018-06-06] MEDS: Vancomycin(*) 1,250 MG IV Q8H IVPB SCH ×6 (06:16→22:20)
[2018-06-06] MEDS: clonazePAM TAB(*) 0.5 MG PO PRN ×2 (06:31→20:48)
[2018-06-06] MEDS: PARoxetine HCL TAB* 10 MG PO SCH (08:08)
[2018-06-06] MEDS: Gabapentin CAP(*) 300 MG PO SCH (08:08)
[2018-06-06] MEDS: Buprenorphine/Naloxone 8-2 MG SL TAB* 1 TAB SL SCH (08:08)
[2018-06-06] MEDS: Nicotine PATCH 21 MG/24 HR* PATCH TRANSDERM SCH (08:08)
[2018-06-06 08:24] LABS: ABS Basophils 0 10^3/ul (0-0.2); ABS Eosinophils 0.1 10^3/ul (0-0.6); ABS Monocytes 0.5 10^3/ul (0-0.8); ABS Neutrophils 4.6 10^3/ul (1.5-7.7); ABS Nucleated RBC 0 10^3/ul; Eosinophil % 2.2 % (0-6); Hematocrit 35 % (42-52); Hemoglobin 11.9 g/dl (14.0-18.0); Lymphocyte % 15.3 % (25-47); Mean Corpuscular HGB Conc 34 g/dl (31-36); Mean Corpuscular Hemoglobin 32 pg (27-31); Mean Corpuscular Volume 93 fL (80-94); Mean Platelet Volume 7.6 um3 (7.4-10.4); Nucleated Red Blood Cells % 0; Platelet Count 128 10^3/ul (150-450); Red Blood Count 3.71 10^6/ul (4.00-5.40); Red Cell Distribution Width 13 % (10.5-15); White Blood Count 6.2 10^3/ul (3.5-10.8)
[2018-06-06 08:42] LABS: EGFR Non-African American 97.3 (>60)
[2018-06-06] MEDS: Mupirocin 2% OINT* TUBE TOPICAL SCH ×3 (09:58→20:46)
--- NOTE | 2018-06-06 12:55 | PN ---
Subjective Date of Service: 06/06/18 Interval History: . Some increased swelling, but still improving overall. Pt in room with and family ; all would like one more day of IV Abx, and will go home tomorrow on oral antibiotics. Dr. Caruso and Dr. Montenegro consulting. . Family History: Unchanged from Admission Social History: Unchanged from Admission Past Medical History: Unchanged from Admission Objective Active Medications: . Acetaminophen (Tylenol Tab*) 650 mg PO Q6H PRN PRN Reason: pain/fever Last Admin: 06/05/18 20:36 Dose: 650 mg Buprenorphine/Naloxone (Suboxone 8-2 Mg Sl Tab*) 0.5 tab.sl SL DAILY WITH MEAL [facility] Last Admin: 06/06/18 08:08 Dose: 0.5 tab.sl Clonazepam (Klonopin Tab(*)) 0.5 mg PO BID PRN PRN Reason: ANXIETY Last Admin: 06/06/18 06:31 Dose: 0.5 mg Device (Nicotine Mouth Piece*) 1 each INH .USE WITH NICOTROL PRN PRN Reason: CRAVING Last Admin: 06/03/18 23:31 Dose: 1 each Gabapentin (Neurontin Cap(*)) 600 mg PO DAILY WITH MEAL [facility] Last Admin: 06/06/18 08:08 Dose: 600 mg Hydralazine HCl (Apresoline Iv*) 5 mg IV SLOW PU Q6H PRN PRN Reason: SBP>180 Vancomycin HCl 1,250 mg/ (Sodium Chloride) 250 mls @ 166.667 mls/hr IVPB Q8H [facility] Last Admin: 06/06/18 06:16 Dose: 166.667 mls/hr Ketorolac Tromethamine (Toradol Inj*) 30 mg IV PUSH Q6H PRN PRN Reason: PAIN Last Admin: 06/06/18 06:15 Dose: 30 mg Mupirocin (Bactroban 2 % Oint*) 1 applic TOPICAL TID [facility] Last Admin: 06/06/18 09:58 Dose: 1 applic Nicotine (Nicotine Inhaler*) 10 mg INH Q2H PRN PRN Reason: CRAVING Last Admin: 06/04/18 08:11 Dose: 10 mg Nicotine (Nicotine Patch 21 Mg/24 Hr*) 1 patch TRANSDERM DAILY@0800 [facility] Last Admin: 06/06/18 08:08 Dose: Not Given Paroxetine HCl (Paxil Tab*) 10 mg PO DAILY WITH MEAL [facility] Last Admin: 06/06/18 08:08 Dose: 10 mg Pharmacy Consult (Vancomycin Per Pharmacy*) 1 note FOLLOW UP .VANC PER PHARMACY [facility] Pharmacy Profile Note (Nicotine Patch Removal Note*) 1 note FOLLOW UP 2099 [facility] Last Admin: 06/05/18 21:19 Dose: Not Given . Vital Signs - 8 hr 06/06/18 06/06/18 06/06/18 06:31 07:04 08:08 Temperature 97.7 F Pulse Rate 69 Respiratory 16 16 18 Rate Blood Pressure 117/61 (mmHg) O2 Sat by Pulse 97 Oximetry 06/06/18 06/06/18 06/06/18 08:26 08:31 10:54 Temperature Pulse Rate Respiratory 18 18 18 Rate Blood Pressure (mmHg) O2 Sat by Pulse Oximetry Oxygen Devices in Use Now: None Appearance: NAD Eyes: No Scleral Icterus Ears/Nose/Mouth/Throat: NL Teeth, Lips, Gums Neck: NL Appearance and Movements; NL JVP Respiratory: Symmetrical Chest Expansion and Respiratory Effort Cardiovascular: NL Sounds; No Murmurs; No JVD Abdominal: NL Sounds; No Tenderness; No Distention Lymphatic: No Cervical Adenopathy Extremities: - - R hand wrapped/dressed Skin: No Rash or Ulcers Neurological: Alert and Oriented x 3 Lines/Tubes/Other Access: Clean, Dry and Intact Peripheral IV Nutrition: Taking PO's Result Diagrams: 06/06/18 08:11 06/06/18 08:11 Diagnostic Imaging: . Doppler R. Arm Negative for DVT. Assess/Plan/Problems-Billing . Assessment: 52 yo man with MRSA infection of R hand, s/p I&D by orthopedics 06/03/18, IV vanco ongoing, and overall situation slowly improving. - Patient Problems (1) MRSA (methicillin resistant Staphylococcus aureus) infection Current Visit: Yes Status: Acute Priority: High Code(s): A49.02 - METHICILLIN RESIS STAPH INFECTION, UNSP SITE Comment: - Doxycycline 100 mg PO BID x 14 days at discharge. - Follow up with Dr. Caruso (ortho) in outpatient setting. (2) Abscess of right hand Current Visit: Yes Status: Acute Priority: High Code(s): L02.511 - CUTANEOUS ABSCESS OF RIGHT HAND
--- NOTE | 2018-06-06 13:04 | PN ---
Progress Note - Progress Note Date of Service: 06/06/18 SOAP: Subjective: Pt seen at bedside. No complaint of pain. Denies F/C, N/T. Vital Signs: Temp Pulse Resp BP Pulse Ox 97.7 F 69 18 117/61 97 06/06/18 07:04 06/06/18 07:04 06/06/18 10:54 06/06/18 07:04 06/06/18 07:04 Laboratory Last Values WBC 6.2 10^3/ul (3.5-10.8) 06/06/18 08:11 RBC 3.71 10^6/ul (4.00-5.40) L 06/06/18 08:11 Hgb 11.9 g/dl (14.0-18.0) L 06/06/18 08:11 Hct 35 % (42-52) L 06/06/18 08:11 MCV 93 fL (80-94) 06/06/18 08:11 MCH 32 pg (27-31) H 06/06/18 08:11 MCHC 34 g/dl (31-36) 06/06/18 08:11 RDW 13 % (10.5-15) 06/06/18 08:11 Plt Count 128 10^3/ul (150-450) L 06/06/18 08:11 MPV 7.6 um3 (7.4-10.4) 06/06/18 08:11 Neut % (Auto) 73.8 % (38-83) 06/06/18 08:11 Lymph % (Auto) 15.3 % (25-47) L 06/06/18 08:11 [place] % (Auto) 8.4 % (0-7) H 06/06/18 08:11 Eos % (Auto) 2.2 % (0-6) 06/06/18 08:11 Baso % (Auto) 0.3 % (0-2) 06/06/18 08:11 Absolute Neuts (auto) 4.6 10^3/ul (1.5-7.7) 06/06/18 08:11 Absolute Lymphs (auto) 1.0 10^3/ul (1.0-4.8) 06/06/18 08:11 Absolute Monos (auto) 0.5 10^3/ul (0-0.8) 06/06/18 08:11 Absolute Eos (auto) 0.1 10^3/ul (0-0.6) 06/06/18 08:11 Absolute Basos (auto) 0 10^3/ul (0-0.2) 06/06/18 08:11 Absolute Nucleated RBC 0 10^3/ul 06/06/18 08:11 Nucleated RBC % 0 06/06/18 08:11 INR (Anticoag Therapy) 1.06 (0.77-1.02) H 06/03/18 22:01 APTT 32.8 seconds (26.0-36.3) 06/03/18 22:01 Sodium 139 mmol/L (135-145) 06/06/18 08:11 Potassium 4.2 mmol/L (3.5-5.0) 06/06/18 08:11 Chloride 111 mmol/L (101-111) 06/06/18 08:11 Carbon Dioxide 24 mmol/L (22-32) 06/06/18 08:11 Anion Gap 4 mmol/L (2-11) 06/06/18 08:11 BUN 19 mg/dL (6-24) 06/06/18 08:11 Creatinine 0.83 mg/dL (0.67-1.17) 06/06/18 08:11 Est GFR ( Amer) 117.7 (>60) 06/06/18 08:11 Est GFR (Non-Af Amer) 97.3 (>60) 06/06/18 08:11 BUN/Creatinine Ratio 22.9 (8-20) H 06/06/18 08:11 Glucose 151 mg/dL (70-100) H 06/06/18 08:11 Calcium 8.4 mg/dL (8.6-10.3) L 06/06/18 08:11 Troponin I 0.00 ng/mL (<0.04) 06/03/18 20:44 C-Reactive Protein 41.63 mg/L (<8.01) H 06/04/18 05:32 C-React Prot High Sens 87.27 mg/L (<2.00) H 06/06/18 08:11 Vancomycin Trough 13.6 mcg/mL 06/05/18 05:21 Objective: Dressing C/D/I. Moves fingers well. No swelling. No erythema. NV intact distally Assessment: 52 yo male s/p right hand abscess bedside I&D in ER - MRSA Plan: Continue IV abx per ID Plan is for D/C home tomorrow on oral abx Follow up with Dr. Caruso in the office on 06/09/18
--- NOTE | 2018-06-06 14:36 | CONS ---
CONSULTATION REPORT: DATE OF CONSULT: 06/06/18. REQUESTING PHYSICIAN: Dr. Morales. CONSULTING SERVICE: Infectious Disease. REASON FOR CONSULT: Right ring finger infection. IMPRESSION: 1. Abscess of the right fourth finger status post incision and debridement by Dr. Caruso. Culture from 06/03/18 had grown methicillin-resistant Staphylococcus aureus. He does not acquire preceding injury. He had an x-ray that does not show any foreign body or fracture. His range of motion is improving. 2. Septic joint or tenosynovitis less likely. 3. Obesity. 4. Tobacco use. RECOMMENDATIONS: Continue vancomycin for another 24 hours. We will reevaluate tomorrow as long as he is having continued improvement, can change the doxycycline 100 mg by mouth twice a day for 14 more days. HISTORY OF PRESENT ILLNESS: This is a 52-year-old man with a right fourth finger infection that came on about 5 or 6 days ago with redness, pain, and swelling without any preceding injury. He thought he must have a spider bite. Because of the swelling, he came to the hospital on 06/03/18, with white count of 10,000. He is afebrile and started on vancomycin, had an I and D done by Dr. Caruso. Since then, he has had improvement in the redness that was tracking up his right arm; it has essentially resolved. He had had improvement in range of motion of the fourth finger as well as the swelling in the finger and his hand. He cannot quite extend it out completely. The pain has much improved. He has not had infections like this in the past that required hospitalization. PAST MEDICAL HISTORY: 1. Tobacco abuse. 2. Opioid abuse. 3. Obesity. 4. Negative hepatitis C and HIV testing, 03/01/18. MEDICATIONS: 1. Tylenol. 2. Suboxone. 3. Clozapine. 4. Gabapentin. 5. Nicotine patch. 6. Paroxetine. 7. Vancomycin 1250 mg every 8 hours. ALLERGIES: FAMILY HISTORY: Mother from diabetes. Father in 70s of [place]. SOCIAL HISTORY: He lives in [place] with family. He is a smoker. He notes history of using in the opioids in the past, but not injection. REVIEW OF SYSTEMS: All negative to a 14-point review except as noted above in the history of present illness. PHYSICAL EXAM: Vital Signs: Temperature 36, heart rate is 70, respiratory rate 18, blood pressure 117/61, oxygen saturation 97% on room air. General: He is awake and not in distress. Neurologic: He is oriented x3. Follows all commands. HEENT: There is no thrush. Neck: Supple without mass. Heart: Regular rate and rhythm without murmurs, rubs, or gallops. Lungs: Clear to auscultation bilaterally. Abdomen: Soft, nontender, and nondistended. There is bowel sounds present. Skin: There is no rashes or splinter hemorrhages. Musculoskeletal: There is mild right forearm edema without crepitus, fluctuance , erythema, or warmth. Fourth finger incision is intact. There is some slight serous drainage, decreased range of motion and extension. DIAGNOSTIC STUDIES/LAB DATA: White blood cell count 6, hemoglobin 11, platelets 128. Creatinine 0.8. CRP 41. Please see impressions and recommendations outlined above, which I have discussed with Dr. Morales. Thanks for asking me to see Kate in consultation. [id number]/[facility] #: [id number] [facility]
[2018-06-06] MEDS: Nicotine Patch Removal NOTE FOLLOW UP SCH (20:49)
--- NOTE | 2018-06-07 02:36 | DS ---
CC: Dr. Maria Del Rosario Caruso * DISCHARGE SUMMARY: DATE OF ADMISSION: 06/03/18 DATE OF DISCHARGE: 06/07/18 OUTPATIENT PHYSICIAN: Silvia Koo MD at [facility]. PRIMARY CARE PHYSICIAN: None. CONSULTING ORTHOPEDIST: Dr. Maria Del Rosario Caruso. PRINCIPAL DISCHARGE DIAGNOSES: Methicillin-resistant Staphylococcus aureus ( MRSA) abscess and infection of right fourth digit, status post incision and drainage by Dr. Caruso at the bedside with wound culture demonstrating sensitivity to doxycycline. SECONDARY DIAGNOSES: 1. Opioid abuse - on Suboxone. 2. Tobacco abuse. 3. Obesity - BMI of 37. 4. History of complicated cholecystectomy requiring multiple surgeries and Kael -en- Y. DISCHARGE MEDICATION REGIMEN: New: 1. Doxycycline 100 mg by mouth twice daily for 14 days, then stop. Continue: 1. Suboxone 4 mg - as per previous prescription - no change intended. 2. Gabapentin 600 mg by mouth daily with meals. 3. Paxil 10 mg by mouth daily. HISTORY OF PRESENT ILLNESS AND HOSPITAL COURSE: Please see the history and physical by Dr. Janet Li on 06/03/18 as well as the orthopedic consultation by Dr. Maria Del Rosario Caruso on the same date. In brief, Mr. Love is a 52-year-old gentleman with medical history detailed above, who came to the emergency room with worsening edema of the right hand. The patient initially noted an itchy bump on his right fourth finger approximately 1 week prior to admission. He thought it could have been a spider bite, but the area progressively got more red and edematous. There were no systemic symptoms. He went to [facility] and described 7/10 pain. He had an I and D performed under local anesthesia with copious amounts of purulent discharge obtained. He received Toradol and was discharged on Bactrim. The patient was able to flex and extend digits at this time, but came back to the emergency room when he started having forearm and proximal arm erythema and swelling. The culture done at [facility] came back positive for MRSA. 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 The patient was seen by Dr. Caruso and she performed a digital block with lidocaine and incised the abscess longitudinally with a significant amount of purulent material released. The wound was copiously irrigated and dressed with 4x4s, Kerlix, and Shankar wrap. The patient was admitted to the hospital for IV vancomycin and seen several times by Orthopedics. The patient's proximal arm erythema and swelling decreased. We employed elevation, which worked well. The patient suffered during the hospitalization with respect to the no smoking policy, and I believe left the hospital a few times to actually smoke. The patient did require some anxiolytic therapy during hospitalization and did well with 0.5 mg of Klonopin. We agreed this would be only for the hospitalization. Right upper extremity ultrasound Doppler was done to ensure there was no clot and indeed there was no DVT. Mr. Love is going to continue on doxycycline that was found to be effective in situ against the MRSA. I am prescribing a 2-week course, but he should follow up with Dr. Caruso as directed. I believe the Orthopedics PA arranged a follow up appointment on , 06/09/18, in Dr. Caruso's office, and the patient confirmed he will make this appointment. The patient was given return to ED instructions if he has any worrisome symptoms including, but not limited to, chest pain, shortness of breath, fevers , worsening of his infection, streaking up his arm, or any other concerning symptoms that does not quickly cheli. TIME SPENT: Total time taken to discharge Mr. Love on 06/07/18 was 45 minutes, greater than half of the time spent going over the discharge instructions face-to- face with the patient at the bedside and explaining return to ED instructions. [id number]/[facility] #: [id number] [facility]
[2018-06-07] MEDS: Ketorolac INJ* 30 MG/ML 1 ML VIAL IV PUSH PRN (05:16)
[2018-06-07] MEDS: Vancomycin(*) 1,250 MG IV Q8H IVPB SCH ×2 (05:48)
--- NOTE | 2018-06-07 07:50 | PN ---
Progress Note - Progress Note Date of Service: 06/07/18 SOAP: Subjective: []Patient seen at bedside. He is feeling well with no feeling of fever, chills or hand pain. Objective: []General: Well appearing, NAD RUE: Dressing changed, packing pulled, Mild dried purulence, no active drainage and unable to express any purulence. Moves fingers well, ring finger flexion limited. Mild hand swelling. No erythema. Assessment: 52 yo male s/p right hand abscess bedside I&D in ER - MRSA Plan: Continue soapy soaks 3x/day. Otherwise leave dressing CDI. Follow up with Dr. Caruso in the office on 06/09/18, call for appt Vital Signs Temp 98.7 F 06/07/18 04:48 Pulse 68 06/07/18 04:48 Resp 16 06/07/18 04:48 BP 133/66 06/07/18 04:48 Pulse Ox 100 06/07/18 04:48 Intake & Output 06/06/18 06/07/18 06/07/18 18:59 06:59 18:59 Intake Total 580 1610 Output Total 825 950 Balance -245 660 Intake: IVPB 280 290 ABX - VANCOMYCIN 280 290 Oral 300 1320 Output: Urine 825 950 Laboratory Last Values WBC 6.2 10^3/ul (3.5-10.8) 06/06/18 08:11 RBC 3.71 10^6/ul (4.00-5.40) L 06/06/18 08:11 Hgb 11.9 g/dl (14.0-18.0) L 06/06/18 08:11 Hct 35 % (42-52) L 06/06/18 08:11 MCV 93 fL (80-94) 06/06/18 08:11 MCH 32 pg (27-31) H 06/06/18 08:11 MCHC 34 g/dl (31-36) 06/06/18 08:11 RDW 13 % (10.5-15) 06/06/18 08:11 Plt Count 128 10^3/ul (150-450) L 06/06/18 08:11 MPV 7.6 um3 (7.4-10.4) 06/06/18 08:11 Neut % (Auto) 73.8 % (38-83) 06/06/18 08:11 Lymph % (Auto) 15.3 % (25-47) L 06/06/18 08:11 [place] % (Auto) 8.4 % (0-7) H 06/06/18 08:11 Eos % (Auto) 2.2 % (0-6) 06/06/18 08:11 Baso % (Auto) 0.3 % (0-2) 06/06/18 08:11 Absolute Neuts (auto) 4.6 10^3/ul (1.5-7.7) 06/06/18 08:11 Absolute Lymphs (auto) 1.0 10^3/ul (1.0-4.8) 06/06/18 08:11 Absolute Monos (auto) 0.5 10^3/ul (0-0.8) 06/06/18 08:11 Absolute Eos (auto) 0.1 10^3/ul (0-0.6) 06/06/18 08:11 Absolute Basos (auto) 0 10^3/ul (0-0.2) 06/06/18 08:11 Absolute Nucleated RBC 0 10^3/ul 06/06/18 08:11 Nucleated RBC % 0 06/06/18 08:11 INR (Anticoag Therapy) 1.06 (0.77-1.02) H 06/03/18 22:01 APTT 32.8 seconds (26.0-36.3) 06/03/18 22:01 Sodium 139 mmol/L (135-145) 06/06/18 08:11 Potassium 4.2 mmol/L (3.5-5.0) 06/06/18 08:11 Chloride 111 mmol/L (101-111) 06/06/18 08:11 Carbon Dioxide 24 mmol/L (22-32) 06/06/18 08:11 Anion Gap 4 mmol/L (2-11) 06/06/18 08:11 BUN 19 mg/dL (6-24) 06/06/18 08:11 Creatinine 0.83 mg/dL (0.67-1.17) 06/06/18 08:11 Est GFR ( Amer) 117.7 (>60) 06/06/18 08:11 Est GFR (Non-Af Amer) 97.3 (>60) 06/06/18 08:11 BUN/Creatinine Ratio 22.9 (8-20) H 06/06/18 08:11 Glucose 151 mg/dL (70-100) H 06/06/18 08:11 Calcium 8.4 mg/dL (8.6-10.3) L 06/06/18 08:11 Troponin I 0.00 ng/mL (<0.04) 06/03/18 20:44 C-Reactive Protein 41.63 mg/L (<8.01) H 06/04/18 05:32 C-React Prot High Sens 87.27 mg/L (<2.00) H 06/06/18 08:11 Vancomycin Trough 13.6 mcg/mL 06/05/18 05:21
[2018-06-07] MEDS: Acetaminophen TAB* 325 MG PO PRN (08:24)
[2018-06-07] MEDS: Gabapentin CAP(*) 300 MG PO SCH (08:25)
[2018-06-07] MEDS: clonazePAM TAB(*) 0.5 MG PO PRN (08:25)
[2018-06-07] MEDS: Nicotine PATCH 21 MG/24 HR* PATCH TRANSDERM SCH (08:26)
[2018-06-07] MEDS: PARoxetine HCL TAB* 10 MG PO SCH (08:26)
[2018-06-07] MEDS: Mupirocin 2% OINT* TUBE TOPICAL SCH (08:27)
[2018-06-07] MEDS: Buprenorphine/Naloxone 8-2 MG SL TAB* 1 TAB SL SCH (08:27)
[2018-06-07 08:53] VITALS: BP 136/73
== END 2018-06-07 10:20 | disposition home or self-care (01) | DRG 383 ==
LOC: ED 19:31 → SSU 21:43
PROVIDERS: ADMIT Internal Medicine; ATTEND Hospitalist
PROC: 0H9FXZZ Drainage of Right Hand Skin, External Approach (ICD-10-PCS; principal; 2018-06-03)
DX: L02.511 Cutaneous abscess of right hand (principal); B95.62 Methicillin resistant Staphylococcus aureus infection as the cause of diseases classified elsewhere; E66.9 Obesity, unspecified; F17.210 Nicotine dependence, cigarettes, uncomplicated; F11.10 Opioid abuse, uncomplicated; I44.4 Left anterior fascicular block; E87.6 Hypokalemia; L08.0 Pyoderma; Z68.37 Body mass index [BMI] 37.0-37.9, adult; Z79.899 Other long term (current) drug therapy; Z83.3 Family history of diabetes mellitus; Z82.49 Family history of ischemic heart disease and other diseases of the circulatory system
CPT/HCPCS: 10060; 36415; 80048; 80202; 84484; 85025; 85610; 85730; 86140; 86141; 87070; 87077; 87186; 87205; 87640; 87641; 93005; 99212; 99284; A9270-GY; G0463; J1885; J3370